=== PATIENT | female | born 1945 | race Two or more races ===

== ENCOUNTER 2018-01-31 05:25 | Day surgery (SDC) | payer OTHER ==
[~2018-01-31 05:25] MED LIST: MONTELUKAST SOD10 MG PO; ZYRTEC10 M3 PO
[2018-01-31] MEDS ORDERED: PERCOCET 5-3251 EACH PO (08:56)
[2018-01-31] MEDS ORDERED: COLACE100 MG PO (08:56)
[2018-01-31] MEDS ORDERED: NEURONTIN300 MG PO (08:56)
== END 2018-01-31 11:20 | disposition home or self-care (01) ==
LOC: CIR.AMB 05:25
DX: K64.8 Other hemorrhoids (principal)

== ENCOUNTER 2019-09-30 08:52 | Outpatient (CLI) | payer OTHER ==
[~2019-09-30 08:52] MED LIST changes: +COLACE100 MG PO; +NEURONTIN300 MG PO; +PERCOCET 5-3251 EACH PO
== END 2019-09-30 09:02 | disposition home or self-care (01) ==
LOC: RAD 08:52
PROVIDERS: ATTEND Orthopaedic Surgery
DX: R07.89 Other chest pain (principal)

== ENCOUNTER 2019-10-01 13:51 | Inpatient (IN) | payer OTHER ==
[~2019-10-01] VITALS: Ht 149.9 cm; Wt 63.5 kg
[2019-10-02] MEDS ORDERED: DIGOXIN125 MCG PO (09:17)
[2019-10-06] MEDS ORDERED: LANOXIN250 MCG PO (09:44)
== END 2019-10-08 16:27 | disposition home or self-care (01) | DRG 470 ==
LOC: SURG 10-06 06:00 → O/R 10-06 06:00 → SURH 10-06 11:15 → O/R 10-06 11:30 → SURG 10-06 16:53
PROVIDERS: ADMIT Orthopaedic Surgery; ATTEND Orthopaedic Surgery
PROC: 0SRD0JZ Replacement of Left Knee Joint with Synthetic Substitute, Open Approach (ICD-10-PCS; principal; 2019-10-06 11:30)
DX: M17.12 Unilateral primary osteoarthritis, left knee (principal); D62 Acute posthemorrhagic anemia